=== PATIENT | female | born 1955 | race Caucasian/White ===

== ENCOUNTER → 2016-11-11 | Outpatient (REF) | payer OTHER ==
[2016-11-11 12:21] LABS: MEAN CORPUSCULAR HGB CONC 31.1 g/dl (32.0-36.5); MEAN CORPUSCULAR VOLUME 83.6 fl (80.0-96.0); WHITE BLOOD COUNT 5.8 K/mm3 (4.0-10.0)
[2016-11-11 12:37] LABS: ALBUMIN 4.1 GM/DL (3.2-5.2); ALBUMIN/GLOBULIN RATIO 1.41 (1.00-1.93); ALKALINE PHOSPHATASE 73 U/L (45-117); ALT/SGPT 23 U/L (12-78); ANION GAP 11 MEQ/L (8-16); AST/SGOT 15 U/L (15-37); BILIRUBIN,TOTAL 0.4 MG/DL (0.2-1.0); BLOOD UREA NITROGEN 14 MG/DL (7-18); CALCIUM LEVEL 9.2 MG/DL (8.8-10.2); CARBON DIOXIDE LEVEL 27 MEQ/L (21-32); CHLORIDE LEVEL 103 MEQ/L (98-107); CHOLESTEROL LEVEL 216 MG/DL (<200); CREATININE FOR GFR 0.72 MG/DL (0.55-1.02); GLOMERULAR FILTRATION RATE > 60.0 (>45); GLUCOSE, FASTING 103 MG/DL (80-110); POTASSIUM SERUM 4.4 MEQ/L (3.5-5.1); SODIUM LEVEL 141 MEQ/L (136-145); TRIGLYCERIDES LEVEL 91 MG/DL (<150)
== END ==
LOC: M SFHCPLAZ 11:08
PROVIDERS: ATTEND Internal Medicine
DX: Z00.00 Encounter for general adult medical examination without abnormal findings (principal); Z86.2 Personal history of diseases of the blood and blood-forming organs and certain disorders involving the immune mechanism; E78.00 Pure hypercholesterolemia, unspecified; F34.1 Dysthymic disorder

== ENCOUNTER → 2016-12-12 | Outpatient (CLI) | payer OTHER ==
--- NOTE | 2016-12-12 16:49 | REPMRS ---
Patient History The patient states she has not had a clinical breast exam in over a year. Family history of colorectal cancer in father at age 83, prostate cancer in paternal grandfather at age 50 or over, breast cancer in sister at age 50, breast cancer in maternal grandmother at age 42, and breast cancer in paternal cousin at age 50 or over. Benign stereotactic core biopsy of the right breast. Benign excisional biopsy of both breasts. Digital Woman Screen Mammo: December 12, 2016 - Exam #: [id number] Bilateral CC and MLO view(s) were taken. Technologist: Bethany Stevens Technologist Prior study comparison: June 08, 2015, digital bilateral screening mammo, performed at [facility]. May 27, 2014, bilateral bilat screen digital mammo, performed at [facility] ([facility] FINDINGS: There are scattered fibroglandular densities. There has been no change in the appearance of the mammogram from the prior studies. There is a mild amount of residual fibroglandular tissue which is fairly symmetric. There is no interval development of dominant mass, architectural distortion, or clustered microcalcification suggestive of malignancy. ASSESSMENT: BI-RADS/ACR category 1 mammogram. Negative. Recommendation Routine screening mammogram in 1 year (for women over age 40). This mammogram was interpreted with the aid of an FDA-approved computer-aided dectection system. Electronically Signed By: Josef Perez MD 12/12/16 [id number]
--- NOTE | 2016-12-14 10:24 | DEXA ---
AP SPINE L1 - L4 1.132 -0.5 0.8 LT FEMUR TOTAL 0.984 -0.2 0.8 RT FEMUR TOTAL 1.068 0.5 1.5 TOTAL BODY TOTAL OTHER DUAL FEMUR FRAX* ASSESSMENT Risk factors: None. 10 year probability of fracture Major osteoporotic fracture 7.3 % Hip fracture 0.4 % COMMENTS: Normal bone densitometry of the spine and hips. The increased density of the spine does represent a significant change. The increased density of the left hip does not represent a significant change. The increased density of the right hip does not represent a significant change. The density of the spine has decreased 1.4% since the initial exam on 11/12/2002. The spine density has increased 3.5% since the most recent exam on 04/18/2011. ( Matched prior study for comparison.) The density of the left hip has decreased 6.4% since the initial exam on 2002. The density of the left hip has increased 0.9% since the most recent exam on . The density of the right hip has decreased 0.8% since the initial exam on 2002. The density of the right hip has increased 0.7% since the most recent exam on . FOLLOW-UP: Recommendation for the next bone density exam: 5 years. ANOOPD
== END ==
LOC: M WHC 14:45
PROVIDERS: ATTEND Internal Medicine
DX: Z12.31 Encounter for screening mammogram for malignant neoplasm of breast (principal); M85.89 Other specified disorders of bone density and structure, multiple sites

== ENCOUNTER → 2017-11-10 | Outpatient (REF) | payer OTHER ==
[2017-11-10 12:05] LABS: HEMATOCRIT 37.9 % (36.0-47.0); HEMOGLOBIN 11.9 g/dl (12.0-16.0); MEAN CORPUSCULAR HEMOGLOBIN 25.1 pg (27.0-33.0); MEAN CORPUSCULAR HGB CONC 31.4 g/dl (32.0-36.5); PLATELET COUNT, AUTOMATED 389 10^3/uL (150-450); RED BLOOD COUNT 4.74 10^6/uL (4.00-5.40); RED CELL DISTRIBUTION WIDTH 17.2 % (11.5-14.5); WHITE BLOOD COUNT 5.5 10^3/uL (4.0-10.0)
[2017-11-10 12:33] LABS: ALBUMIN 3.9 GM/DL (3.2-5.2); ALBUMIN/GLOBULIN RATIO 1.34 (1.00-1.93); ALKALINE PHOSPHATASE 75 U/L (45-117); ALT/SGPT 17 U/L (12-78); ANION GAP 9 MEQ/L (8-16); AST/SGOT 13 U/L (7-37); BILIRUBIN,TOTAL 0.3 MG/DL (0.2-1.0); BLOOD UREA NITROGEN 11 MG/DL (7-18); CALCIUM LEVEL 8.7 MG/DL (8.8-10.2); CARBON DIOXIDE LEVEL 26 MEQ/L (21-32); CHLORIDE LEVEL 103 MEQ/L (98-107); CHOLESTEROL LEVEL 196 MG/DL (<200); CHOLESTEROL RISK RATIO 3.438 (<5); CREATININE FOR GFR 0.61 MG/DL (0.55-1.30); GLOMERULAR FILTRATION RATE > 60.0 (>45); GLUCOSE, FASTING 99 MG/DL (70-100); HDL CHOLESTEROL 57 MG/DL (>40); MAGNESIUM LEVEL 2.4 MG/DL (1.8-2.4); NON-HDL-C 139 MG/DL; POTASSIUM SERUM 4.3 MEQ/L (3.5-5.1); SODIUM LEVEL 138 MEQ/L (136-145); TOTAL PROTEIN 6.8 GM/DL (6.4-8.2); TRIGLYCERIDES LEVEL 115 MG/DL (<150)
[2017-11-10 14:18] LABS: FERRITIN 5 NG/ML (8-252); IRON (FE) 33 UG/DL (50-170); PERCENT SATURATION 7.6 % (13.2-45.0); TOTAL IRON BINDING CAPACITY 434 UG/DL (250-450)
== END ==
LOC: M SFHCPLAZ 08:10
DX: Z00.00 Encounter for general adult medical examination without abnormal findings (principal); E78.00 Pure hypercholesterolemia, unspecified; G25.81 Restless legs syndrome; K21.9 Gastro-esophageal reflux disease without esophagitis; R71.8 Other abnormality of red blood cells; Z86.2 Personal history of diseases of the blood and blood-forming organs and certain disorders involving the immune mechanism

== ENCOUNTER → 2018-06-06 | Outpatient (REF) | payer MEDICARE, OTHER ==
[2018-06-06 12:40] LABS: HEMATOCRIT 43.3 % (36.0-47.0); HEMOGLOBIN 14.2 g/dl (12.0-15.5); MEAN CORPUSCULAR HEMOGLOBIN 28.9 pg (27.0-33.0); MEAN CORPUSCULAR HGB CONC 32.8 g/dl (32.0-36.5); PLATELET COUNT, AUTOMATED 320 10^3/uL (150-450); RED BLOOD COUNT 4.92 10^6/uL (4.00-5.40); RED CELL DISTRIBUTION WIDTH 15.9 % (11.5-14.5); WHITE BLOOD COUNT 5.4 10^3/uL (4.0-10.0)
[2018-06-06 13:26] LABS: CHOLESTEROL LEVEL 218 MG/DL (<200); CHOLESTEROL RISK RATIO 3.824 (<5); HDL CHOLESTEROL 57 MG/DL (>40); LDL CHOLESTEROL 123 MG/DL (<100); NON-HDL-C 161 MG/DL; TRIGLYCERIDES LEVEL 190 MG/DL (<150)
== END ==
LOC: M SFHCPLAZ 08:50
DX: Z86.2 Personal history of diseases of the blood and blood-forming organs and certain disorders involving the immune mechanism (principal); E78.00 Pure hypercholesterolemia, unspecified
CPT/HCPCS: 80061

== ENCOUNTER → 2018-10-04 | Outpatient (CLI) | payer MEDICARE, OTHER ==
--- NOTE | 2018-10-04 19:32 | REP ---
CHEST, TWO VIEWS: Two views of the chest are performed. There is no comparison study. There is no acute infiltrate or pulmonary edema. The heart is not enlarged. There is mild calcification and tortuosity of the thoracic aorta. There is a mild sized hiatal hernia. There are mild degenerative changes of the spine. IMPRESSION: No acute infiltrate. Moderate sized hiatal hernia. Electronically Signed by Josef Perez MD 10/04/2018 08:28 P
[2018-10-04 19:53] LABS: HEMATOCRIT 45.1 % (36.0-47.0); HEMOGLOBIN 14.8 g/dl (12.0-15.5); MEAN CORPUSCULAR HEMOGLOBIN 28.6 pg (27.0-33.0); MEAN CORPUSCULAR HGB CONC 32.8 g/dl (32.0-36.5); MEAN CORPUSCULAR VOLUME 87.1 fl (80.0-96.0); PLATELET COUNT, AUTOMATED 326 10^3/uL (150-450); RED BLOOD COUNT 5.18 10^6/uL (4.00-5.40); WHITE BLOOD COUNT 8.3 10^3/uL (4.0-10.0)
[2018-10-04 19:55] LABS: BLOOD UREA NITROGEN 15 MG/DL (7-18); CALCIUM LEVEL 10.1 MG/DL (8.8-10.2); CARBON DIOXIDE LEVEL 27 MEQ/L (21-32); CHLORIDE LEVEL 102 MEQ/L (98-107); CREATININE FOR GFR 0.74 MG/DL (0.55-1.30); GLOMERULAR FILTRATION RATE > 60.0 (>45); GLUCOSE, FASTING 86 MG/DL (70-100); SODIUM LEVEL 136 MEQ/L (136-145); TROPONIN I < 0.02 NG/ML (< 0.10)
[2018-10-04 20:01] LABS: VITAMIN B12 LEVEL 657 PG/ML (247-911)
== END ==
LOC: M WUC 17:05
PROVIDERS: ATTEND Nurse Practitioner Adult Health
DX: K44.9 Diaphragmatic hernia without obstruction or gangrene (principal); R06.02 Shortness of breath; R07.89 Other chest pain
CPT/HCPCS: 36415; 71046; 80048; 82607; 84484; 85027; 93005; G0463

== ENCOUNTER → 2018-10-16 | Outpatient (CLI) | payer MEDICARE, OTHER ==
--- NOTE | 2018-10-16 19:25 | ECHO ---
DATE OF PROCEDURE: 10/16/2018 REFERRING PHYSICIAN: Carmen Costello NP INDICATION: Shortness of breath. Height 152 cm, weight 67 kg DIMENSIONS: IVS: 1.2 LV: 3.6 LVPW: 1.1 LA: 3.9 Aorta: 2.6 IVC: 0.8 Mitral E wave velocity: 44 A wave: 72. E prime septal: 3.6 E prime lateral: 6.4 FINDINGS: The study is of good technical quality. The patient is in sinus rhythm. Left ventricle is of normal size and systolic function with estimated ejection fraction (EF) around 65%. Borderline left ventricular hypertrophy (LVH) is present. Right ventricle appears normal. Both atria appear normal. All four cardiac valves were reasonably well seen and appear normal. Trivial pericardial effusion is noted. Inferior vena cava is of normal size. Aortic root is normal, aortic arch and abdominal aorta also appear normal. Doppler interrogation reveals competent aortic valve. There is trace mitral and trace tricuspid insufficiency. Unfortunately quality of TR jet was not sufficient to estimate pulmonary artery pressure. Pulmonic valve is functionally competent. Mitral inflow pattern and tissue Doppler imaging of mitral annulus revealed grade 1 diastolic dysfunction. CONCLUSIONS: 1. Study is of good technical quality. 2. Normal left ventricular (LV) size with borderline LVH and preserved LV systolic function. Grade 1 diastolic dysfunction. 3. No significant valvular disease. 4. Normal central venous pressure. 5. Unable to estimate pulmonary artery pressure but no signs to suggest pulmonary hypertension. 6. Trace pericardial effusion. COMMENT: Subacute bacterial endocarditis (SBE) prophylaxis is not recommended. MTDD
== END ==
LOC: M CARPUL 09:29
PROVIDERS: ATTEND Nurse Practitioner Adult Health
DX: R06.02 Shortness of breath (principal); R07.89 Other chest pain

== ENCOUNTER → 2018-12-06 | Outpatient (CLI) | payer MEDICARE, OTHER ==
[~2018-12-06] MED LIST: METHACHOLINE KIT (J7674) INH ONE
--- NOTE | 2018-12-06 14:34 | PFTRPT ---
Site: [facility], [address] [place], [address] ID: [id number] Name: ANAHI HOBBS Visit Date: 12/06/2018 Second ID: [id number] Referring Doctor: Nelson Jeffery MD Reviewing Doctor: Nelson Jeffery MD Chemic Mangler: Mirtha OLSON, MAMADOU Age: 63 : 1955 Sex: Female Race: Height: 60.00 Inches Weight: 152.00 Lbs BSA: 1.66 Order IDs: [id number] Requested Test(s): <RESP-PFT.BROCHOPROV> Diagnosis: R06.02 of albuterol for postbronchodilator. Review Status: Not Reviewed Pre-Bronch Post-Bronch Pred Actual %Pred Actual %Chng SPIROMETRY FVC (L) 2.67 2.47 92 2.32 -6 FEV1 (L) 2.03 1.83 90 1.79 -2 FEV1/FVC (%) 77 74 96 77 3 FEF 25% (L/sec) 4.43 4.77 107 4.88 2 FEF 50% (L/sec) 3.47 2.05 59 1.67 -18 FEF 75% (L/sec) 1.08 0.38 35 0.33 -14 FEF 25-75% (L/sec) 1.88 1.29 68 1.16 -10 FEF Max (L/sec) 5.36 5.62 104 5.49 -2 FIVC (L) 2.40 2.34 -2 FIF 50% (L/sec) 3.25 2.76 84 4.70 70 FIF Max (L/sec) 3.03 4.70 55 Expiratory Time (sec) 6.52 6.41 -1 Back Extrap Vol (L) 0.05 0.07 36 Time To FEFmax (sec) 0.064 0.067 3
== END ==
LOC: M CARPUL 07:24
PROVIDERS: ATTEND Internal Medicine Pulmonary Disease
DX: R06.02 Shortness of breath (principal)
CPT/HCPCS: 94070; 95070; J7674

== ENCOUNTER → 2019-01-22 | Outpatient (REF) | payer MEDICARE, OTHER ==
[2019-01-22 18:54] LABS: BLOOD UREA NITROGEN 21 MG/DL (7-18); CREATININE FOR GFR 0.85 MG/DL (0.55-1.30); GLOMERULAR FILTRATION RATE > 60.0 (>45)
== END ==
LOC: M LAB REF 17:08
PROVIDERS: ATTEND Internal Medicine Pulmonary Disease
DX: J45.40 Moderate persistent asthma, uncomplicated (principal)

== ENCOUNTER → 2019-02-06 | Outpatient (CLI) | payer MEDICARE, OTHER ==
[~2019-02-06] MED LIST changes: +ISOVUE-370 76% 100ML VIAL (Q9967) As Ordered ONE; -METHACHOLINE KIT (J7674) INH ONE
--- NOTE | 2019-02-06 12:49 | REP ---
CT of the chest with IV contrast: Comparison is the PA and lateral chest dated 10/04/2018. There are no comparison chest CTs. There are no infiltrates. There are no pleural effusions. There are no nodules or masses. There is a fixed hiatal hernia measuring 8.6 cm in diameter. Cardiac size is enlarged. There is no pericardial effusion. The thoracic aorta is unremarkable. There is no mediastinal or axillary lymph node enlargement. There is no hilar lymph node enlargement. The pulmonary arteries are adequately opacified. No pulmonary emboli are identified. The transverse diameter of the pulmonary trunk measures 3.5 cm. This is compatible with pulmonary hypertension. The visualized upper abdominal contents are unremarkable. Impression: Dilated pulmonary artery trunk measuring up to 3.5 cm, compatible with pulmonary hypertension. 8.6 cm fixed hiatal hernia. No pulmonary emboli. No infiltrates, effusions, masses or adenopathy. Cardiomegaly. Electronically Signed by Josef Ram MD 02/06/2019 12:40 P
== END ==
LOC: M RAD 10:51
PROVIDERS: ATTEND Internal Medicine Pulmonary Disease
DX: I11.9 Hypertensive heart disease without heart failure (principal); J96.11 Chronic respiratory failure with hypoxia; K44.9 Diaphragmatic hernia without obstruction or gangrene
CPT/HCPCS: 71275; Q9967

== ENCOUNTER → 2019-02-10 | Outpatient (CLI) | payer MEDICARE, OTHER ==
[2019-02-10 14:00] LABS: BASO # 0.1 10^3/uL (0.0-0.2); EOS # 0.1 10^3/uL (0.0-0.50); EOS % 1.4 % (0.0-3.0); HEMATOCRIT 45.7 % (36.0-47.0); HEMOGLOBIN 15.2 g/dl (12.0-15.5); LYMPH # 1.8 10^3/uL (1.5-4.5); LYMPH % 25.2 % (24.0-44.0); MEAN CORPUSCULAR HEMOGLOBIN 29.6 pg (27.0-33.0); MEAN CORPUSCULAR HGB CONC 33.3 g/dl (32.0-36.5); MEAN CORPUSCULAR VOLUME 88.9 fl (80.0-96.0); MONO # 0.6 10^3/uL (0.0-0.8); MONO % 8.9 % (0.0-5.0); NEUTROPHILS # 4.5 10^3/uL (1.8-7.7); NEUTROPHILS % 63.2 % (36.0-66.0); PLATELET COUNT, AUTOMATED 326 10^3/uL (150-450); RED BLOOD COUNT 5.14 10^6/uL (4.00-5.40); WHITE BLOOD COUNT 7.1 10^3/uL (4.0-10.0)
[2019-02-10 14:27] LABS: ALBUMIN 3.8 GM/DL (3.2-5.2); ALT/SGPT 18 U/L (12-78); BILIRUBIN,TOTAL 0.4 MG/DL (0.2-1.0); BLOOD UREA NITROGEN 18 MG/DL (7-18); C REACTIVE PROTEIN QUANTITATIV 0.43 MG/DL (0.00-0.30); CALCIUM LEVEL 9.1 MG/DL (8.8-10.2); CARBON DIOXIDE LEVEL 25 MEQ/L (21-32); CHLORIDE LEVEL 108 MEQ/L (98-107); CREATININE FOR GFR 0.78 MG/DL (0.55-1.30); GLOMERULAR FILTRATION RATE > 60.0 (>45); GLUCOSE, FASTING 100 MG/DL (70-100); NT-PRO BNP 744 PG/ML (<125); POTASSIUM SERUM 4.5 MEQ/L (3.5-5.1); SODIUM LEVEL 139 MEQ/L (136-145); TOTAL PROTEIN 6.7 GM/DL (6.4-8.2)
[2019-02-12 14:10] LABS: ANTINUCLEAR ANTIBODIES DIRECT Negative (Negative)
== END ==
LOC: M LAB 13:24
PROVIDERS: ATTEND Internal Medicine
DX: I27.0 Primary pulmonary hypertension (principal)

== ENCOUNTER → 2019-03-05 | Outpatient (CLI) | payer MEDICARE, OTHER ==
[2019-03-05 09:16] LABS: BASO % 0.7 % (0.0-1.0); EOS # 0.1 10^3/uL (0.0-0.50); EOS % 2.4 % (0.0-3.0); HEMATOCRIT 40.9 % (36.0-47.0); HEMOGLOBIN 13.7 g/dl (12.0-15.5); LYMPH % 36.8 % (24.0-44.0); MEAN CORPUSCULAR HEMOGLOBIN 29.4 pg (27.0-33.0); MEAN CORPUSCULAR HGB CONC 33.5 g/dl (32.0-36.5); MEAN CORPUSCULAR VOLUME 87.8 fl (80.0-96.0); MONO # 0.4 10^3/uL (0.0-0.8); MONO % 8.1 % (0.0-5.0); NEUTROPHILS # 2.8 10^3/uL (1.8-7.7); NEUTROPHILS % 51.6 % (36.0-66.0); PLATELET COUNT, AUTOMATED 284 10^3/uL (150-450); RED BLOOD COUNT 4.66 10^6/uL (4.00-5.40); WHITE BLOOD COUNT 5.5 10^3/uL (4.0-10.0)
[2019-03-05 09:47] LABS: BLOOD UREA NITROGEN 16 MG/DL (7-18); CALCIUM LEVEL 9.6 MG/DL (8.8-10.2); CARBON DIOXIDE LEVEL 28 MEQ/L (21-32); CHLORIDE LEVEL 103 MEQ/L (98-107); CREATININE FOR GFR 0.95 MG/DL (0.55-1.30); GLOMERULAR FILTRATION RATE > 60.0 (>45); GLUCOSE, FASTING 104 MG/DL (70-100); NT-PRO BNP 483 PG/ML (<125); POTASSIUM SERUM 4.1 MEQ/L (3.5-5.1); SODIUM LEVEL 138 MEQ/L (136-145)
== END ==
LOC: M LAB 08:44
PROVIDERS: ATTEND Nurse Practitioner Adult Health
DX: I27.20 Pulmonary hypertension, unspecified (principal)

== ENCOUNTER → 2019-05-01 | Outpatient (REF) | payer MEDICARE, OTHER | LOC: M SFHCPLAZ 09:05 | PROVIDERS: ATTEND Internal Medicine | DX: R19.7 Diarrhea, unspecified (principal) ==

== ENCOUNTER → 2019-06-10 | Outpatient (REF) | payer MEDICARE, OTHER ==
[2019-06-10 12:42] LABS: HEMATOCRIT 40.3 % (36.0-47.0); MEAN CORPUSCULAR HGB CONC 32.3 g/dl (32.0-36.5); MEAN CORPUSCULAR VOLUME 93.1 fl (80.0-96.0); PLATELET COUNT, AUTOMATED 297 10^3/uL (150-450); RED BLOOD COUNT 4.33 10^6/uL (4.00-5.40); WHITE BLOOD COUNT 5.9 10^3/uL (4.0-10.0)
[2019-06-10 12:51] LABS: ALBUMIN 3.9 GM/DL (3.2-5.2); ALT/SGPT 20 U/L (12-78); BILIRUBIN,TOTAL 0.4 MG/DL (0.2-1.0); BLOOD UREA NITROGEN 14 MG/DL (7-18); CALCIUM LEVEL 9.3 MG/DL (8.8-10.2); CARBON DIOXIDE LEVEL 30 MEQ/L (21-32); CHLORIDE LEVEL 104 MEQ/L (98-107); CHOLESTEROL LEVEL 210 MG/DL (<200); CHOLESTEROL RISK RATIO 4.375 (<5); CREATININE FOR GFR 0.75 MG/DL (0.55-1.30); GLOMERULAR FILTRATION RATE > 60.0 (>45); GLUCOSE, FASTING 96 MG/DL (70-100); HDL CHOLESTEROL 48 MG/DL (>40); LDL CHOLESTEROL 128 MG/DL (<100); MAGNESIUM LEVEL 2.4 MG/DL (1.8-2.4); NON-HDL-C 162 MG/DL; POTASSIUM SERUM 4.3 MEQ/L (3.5-5.1); SODIUM LEVEL 139 MEQ/L (136-145); TOTAL PROTEIN 6.6 GM/DL (6.4-8.2); TRIGLYCERIDES LEVEL 171 MG/DL (<150); VITAMIN B12 LEVEL 444 PG/ML (247-911)
== END ==
LOC: M SFHCPLAZ 08:58
PROVIDERS: ATTEND Internal Medicine
DX: Z86.2 Personal history of diseases of the blood and blood-forming organs and certain disorders involving the immune mechanism (principal); E78.00 Pure hypercholesterolemia, unspecified; K21.9 Gastro-esophageal reflux disease without esophagitis; F34.1 Dysthymic disorder

== ENCOUNTER → 2019-11-12 | Outpatient (CLI) | payer MEDICARE, OTHER ==
--- NOTE | 2019-11-12 10:14 | REPMRS ---
Patient History The patient states she has not had a clinical breast exam in over a year. Family history of breast cancer at age 50 in sister, breast cancer at age 42 in maternal grandmother, breast cancer at age 50 or over in paternal cousin, colorectal cancer at age 83 in father, prostate cancer at age 50 or over in paternal grandfather. Benign stereotactic core biopsy of the right breast. Benign excisional biopsy of both breasts. Digital Woman Screen Mammo: November 12, 2019 - Exam #: [id number] Bilateral CC and MLO view(s) were taken. Technologist: Lucina Yan, Technologist Prior study comparison: January 31, 2018, digital woman screen mammo performed at [facility] [place]. December 12, 2016, digital woman screen mammo performed at [facility] [place]. June 08, 2015, digital bilateral screening mammo, performed at [facility]. FINDINGS: There are scattered fibroglandular densities. There is a moderate amount of residual fibroglandular tissue which is fairly symmetric. There is no interval development of dominant mass, architectural distortion, or grouped microcalcification typical of malignancy. There has been no change in the appearance of the mammogram from the prior studies. 3-D tomosynthesis shows no additional findings. Assessment: BI-RADS/ACR category 2 mammogram. Benign Findings. Recommendation Breast MRI of both breasts in 6 months. Routine screening mammogram of both breasts in 1 year (for women over age 40). This patient's Lifetime Breast Cancer RIsk is estimated at 20.4 %. Annual screening Breast MRI scanniing is recommended for patient's whose lifetime risk assessment is over 20%. This mammogram was interpreted with the aid of an FDA-approved computer-aided dectection system. Electronically Signed By: Karl Elliott MD 11/12/19 [id number]
== END ==
LOC: M WHC 08:17
PROVIDERS: ATTEND Internal Medicine
DX: Z12.31 Encounter for screening mammogram for malignant neoplasm of breast (principal); Z80.3 Family history of malignant neoplasm of breast; Z86.018 Personal history of other benign neoplasm
CPT/HCPCS: 77063; 77067; G0463

== ENCOUNTER → 2020-06-15 | Outpatient (CLI) | payer MEDICARE, OTHER ==
[2020-06-15 08:21] LABS: HEMATOCRIT 40.9 % (36.0-47.0); HEMOGLOBIN 13.2 g/dl (12.0-15.5); MEAN CORPUSCULAR HEMOGLOBIN 29.1 pg (27.0-33.0); MEAN CORPUSCULAR HGB CONC 32.3 g/dl (32.0-36.5); MEAN CORPUSCULAR VOLUME 90.1 fl (80.0-96.0); PLATELET COUNT, AUTOMATED 283 10^3/uL (150-450); RED BLOOD COUNT 4.54 10^6/uL (4.00-5.40); WHITE BLOOD COUNT 5.9 10^3/uL (4.0-10.0)
[2020-06-15 09:25] LABS: BLOOD UREA NITROGEN 16 MG/DL (7-18); CALCIUM LEVEL 9.3 MG/DL (8.8-10.2); CARBON DIOXIDE LEVEL 26 MEQ/L (21-32); CHLORIDE LEVEL 107 MEQ/L (98-107); FERRITIN 18 NG/ML (8-252); GLOMERULAR FILTRATION RATE > 60.0 (>45); GLUCOSE, FASTING 100 MG/DL (70-100); IRON (FE) 68 UG/DL (50-170); NT-PRO BNP 90 PG/ML (<125); PERCENT SATURATION 20.4 % (13.2-45.0); SODIUM LEVEL 141 MEQ/L (136-145); TOTAL IRON BINDING CAPACITY 334 UG/DL (250-450)
== END ==
LOC: M LAB 07:36
PROVIDERS: ATTEND Internal Medicine
DX: E61.1 Iron deficiency (principal)

== ENCOUNTER → 2020-09-21 | Outpatient (CLI) | payer SELFPAY | LOC: M LABSMTC 13:44 | PROVIDERS: ATTEND Pediatrics | DX: Z20.828 Contact with and (suspected) exposure to other viral communicable diseases (principal) ==

== ENCOUNTER → 2020-11-16 | Outpatient (CLI) | payer MEDICARE, OTHER ==
[2020-11-16 08:21] LABS: BASO # 0.1 10^3/uL (0.0-0.2); BASO % 0.9 % (0.0-1.0); EOS # 0.1 10^3/uL (0.0-0.5); EOS % 1.6 % (0.0-3.0); HEMATOCRIT 40.8 % (36.0-47.0); LYMPH # 2.2 10^3/uL (1.5-5.0); LYMPH % 37.8 % (24.0-44.0); MEAN CORPUSCULAR HEMOGLOBIN 28.8 pg (27.0-33.0); MEAN CORPUSCULAR HGB CONC 31.9 g/dl (32.0-36.5); MEAN CORPUSCULAR VOLUME 90.3 fl (80.0-96.0); MONO # 0.5 10^3/uL (0.0-0.8); MONO % 8.6 % (2.0-8.0); NEUTROPHILS # 2.9 10^3/uL (1.5-8.5); NEUTROPHILS % 50.8 % (36.0-66.0); PLATELET COUNT, AUTOMATED 314 10^3/uL (150-450); RED BLOOD COUNT 4.52 10^6/uL (4.00-5.40); WHITE BLOOD COUNT 5.8 10^3/uL (4.0-10.0)
[2020-11-16 09:05] LABS: ALBUMIN 3.9 GM/DL (3.2-5.2); ALT/SGPT 18 U/L (12-78); BILIRUBIN,TOTAL 0.3 MG/DL (0.2-1.0); BLOOD UREA NITROGEN 21 MG/DL (7-18); CALCIUM LEVEL 9.3 MG/DL (8.8-10.2); CARBON DIOXIDE LEVEL 26 MEQ/L (21-32); CHLORIDE LEVEL 107 MEQ/L (98-107); CHOLESTEROL LEVEL 240 MG/DL (<200); CHOLESTEROL RISK RATIO 4.363 (<5); CREATININE FOR GFR 0.83 MG/DL (0.55-1.30); GLOMERULAR FILTRATION RATE > 60.0 (>45); GLUCOSE, FASTING 97 MG/DL (70-100); HDL CHOLESTEROL 55 MG/DL (>40); LDL CHOLESTEROL 156 MG/DL (<100); NON-HDL-C 185 MG/DL; POTASSIUM SERUM 4.1 MEQ/L (3.5-5.1); SODIUM LEVEL 140 MEQ/L (136-145); TOTAL PROTEIN 6.7 GM/DL (6.4-8.2); TRIGLYCERIDES LEVEL 145 MG/DL (<150)
== END ==
LOC: M LAB 07:30
PROVIDERS: ATTEND Internal Medicine
DX: I27.0 Primary pulmonary hypertension (principal); E78.00 Pure hypercholesterolemia, unspecified; F34.1 Dysthymic disorder; Z11.59 Encounter for screening for other viral diseases
CPT/HCPCS: 36415; 80053; 80061; 84443; 85025; G0463; G0472

== ENCOUNTER → 2021-01-11 | Outpatient (CLI) | payer SELFPAY | LOC: M LABSMTC 14:14 | PROVIDERS: ATTEND Pediatrics | DX: Z20.822 Contact with and (suspected) exposure to COVID-19 (principal) ==

== ENCOUNTER → 2021-01-19 | Outpatient (CLI) | payer MEDICARE, OTHER ==
--- NOTE | 2021-01-19 12:50 | REPPI ---
INDICATION: R07.81 RIB PAIN ON LEFT SIDE. COMPARISON: None TECHNIQUE: Four views FINDINGS: Multiple views of the left ribs show no fracture or osseous lesion. IMPRESSION: Negative left rib series. <Electronically signed by Selvin Lilly > 01/19/21 124
== END ==
LOC: M PLAIMG 10:46
PROVIDERS: ATTEND Nurse Practitioner Family
DX: R07.81 Pleurodynia (principal)

== ENCOUNTER → 2021-04-20 | Outpatient (CLI) | payer MEDICARE, OTHER ==
--- NOTE | 2021-04-21 09:22 | REPMRS ---
Patient History Family history of breast cancer at age 50 in sister, breast cancer at age 42 in maternal grandmother, breast cancer at age 50 or over in paternal cousin, colorectal cancer at age 83 in father, prostate cancer at age 50 or over in paternal grandfather. Benign stereotactic core biopsy of the right breast. Benign excisional biopsy of both breasts. Moderna vaccine 10/30/20 left arm. 11/30/20 left arm. Benign stereotactic bx of the right breast. Benign excisional biopsies of both breasts. Patient states no breast complaints today. Patient has signed MRS History Sheet. Digital Woman Screen Mammo: April 20, 2021 - Exam #: [id number] Bilateral CC and MLO view(s) were taken. Technologist: RT Reynaldo Prior study comparison: November 12, 2019, bilateral digital woman screen mammo performed at [facility]. January 31, 2018, digital woman screen mammo performed at [facility]. FINDINGS: The breast tissue is heterogeneously dense. This may lower the sensitivity of mammography. Screening. Digital screening (2D) mammography was performed bilaterally in the CC and MLO projections. Additionally, breast tomosynthesis (3D mammography) was performed bilaterally in the CC and MLO projections. Todays exam was compared to the prior exam/exams. By history, the patient has no complaints of a palpable breast abnormality or other significant breast complaints. The breasts are unchanged in size and shapeOnce again, dense heterogenous fibroglandular elements are seen bilaterally in a stable appearing pattern but to such a degree that the sensitivity of the mammogram in detecting cancer is decreased.. There are no riki-soft tissue densities or spiculated masses. There is no internal architectural distortion.Once again, stable benign appearing calcifications are seen. There are no suspicious riki-calcific clusters. Skin thickening or nipple retraction is not present. IMPRESSION: BI-RADS Category 2- Benign Findings. There is no evidence of malignant alteration of the breasts. Followup examination recommended in one year. The Volpara volumetric breast density category is C, the breasts are heterogenously dense which may obscure small masses. This mammogram was read with the assistance of [employer],an FDA approved computer aided detection system for mammography. The lifetime Tyrer-Cuzick score is 19.4 % Due to the density of the breasts or Tyrer Cuzick score of 20% or greater, MRI/whole breast screening ultrasound is warranted. Negative x-ray reports should not delay surgical consultation if a dominant or clinically suspicious mass is present. Not all breast cancers can be identified by mammography. Therefore, we recommend that you continue to perform regular breast self-examination and physical examination and then promptly contact your physician of any concerns or changes. Adenosis and dense breasts may obscure an underlying neoplasm. Assessment: BI-RADS/ACR category 2 mammogram. Benign Findings. Recommendation Routine screening mammogram of both breasts in 1 year. Electronically Signed By: Selvin Lilly DO 04/20/21 [id number]
== END ==
LOC: M WHC 10:47
PROVIDERS: ATTEND Internal Medicine
DX: Z12.31 Encounter for screening mammogram for malignant neoplasm of breast (principal)

== ENCOUNTER → 2021-05-08 | Outpatient (CLI) | payer MEDICARE, OTHER ==
[2021-05-08 12:07] LABS: ALBUMIN 3.9 GM/DL (3.2-5.2); ALT/SGPT 24 U/L (12-78); BILIRUBIN,TOTAL 0.4 MG/DL (0.2-1.0); BLOOD UREA NITROGEN 11 MG/DL (7-18); CALCIUM LEVEL 8.8 MG/DL (8.8-10.2); CARBON DIOXIDE LEVEL 27 MEQ/L (21-32); CHLORIDE LEVEL 108 MEQ/L (98-107); CHOLESTEROL LEVEL 215 MG/DL (<200); CHOLESTEROL RISK RATIO 3.909 (<5); CREATININE FOR GFR 0.64 MG/DL (0.55-1.30); GLOMERULAR FILTRATION RATE > 60.0 (>45); GLUCOSE, FASTING 90 MG/DL (70-100); HDL CHOLESTEROL 55 MG/DL (>40); LDL CHOLESTEROL 127 MG/DL (<100); NON-HDL-C 160 MG/DL; POTASSIUM SERUM 5.8 MEQ/L (3.5-5.1); SODIUM LEVEL 139 MEQ/L (136-145); TRIGLYCERIDES LEVEL 165 MG/DL (<150)
== END ==
LOC: M LAB 10:38
PROVIDERS: ATTEND Internal Medicine
DX: E78.00 Pure hypercholesterolemia, unspecified (principal)

== ENCOUNTER → 2021-10-18 | Outpatient (REF) | LOC: M LABSMTC 09:17 | PROVIDERS: ATTEND Pediatrics | DX: Z11.52 Encounter for screening for COVID-19 (principal); Z20.822 Contact with and (suspected) exposure to COVID-19 ==

== ENCOUNTER → 2021-11-02 | Outpatient (CLI) | payer MEDICARE, OTHER ==
[2021-11-02 09:31] LABS: ALBUMIN 3.7 GM/DL (3.2-5.2); ALT/SGPT 17 U/L (12-78); BILIRUBIN,TOTAL 0.2 MG/DL (0.2-1.0); BLOOD UREA NITROGEN 10 MG/DL (7-18); CALCIUM LEVEL 9.4 MG/DL (8.8-10.2); CARBON DIOXIDE LEVEL 28 MEQ/L (21-32); CHLORIDE LEVEL 107 MEQ/L (98-107); CHOLESTEROL LEVEL 202 MG/DL (<200); CHOLESTEROL RISK RATIO 3.366 (<5); CREATININE FOR GFR 0.71 MG/DL (0.55-1.30); GLOMERULAR FILTRATION RATE > 60.0 (>45); GLUCOSE, FASTING 93 MG/DL (70-100); HDL CHOLESTEROL 60 MG/DL (>40); LDL CHOLESTEROL 124 MG/DL (<100); NON-HDL-C 142 MG/DL; SODIUM LEVEL 141 MEQ/L (136-145); TOTAL PROTEIN 6.7 GM/DL (6.4-8.2); TRIGLYCERIDES LEVEL 91 MG/DL (<150)
== END ==
LOC: M LAB 08:27
PROVIDERS: ATTEND Internal Medicine
DX: E78.00 Pure hypercholesterolemia, unspecified (principal)

== ENCOUNTER → 2022-05-05 | Outpatient (CLI) | payer MEDICARE, OTHER ==
[2022-05-05 09:30] LABS: BASO # 0.1 10^3/uL (0.0-0.2); BASO % 1.1 % (0.0-1.0); EOS # 0.1 10^3/uL (0.0-0.5); EOS % 1.8 % (0.0-3.0); HEMATOCRIT 39.3 % (36.0-47.0); HEMOGLOBIN 12.4 g/dl (12.0-15.5); LYMPH # 1.2 10^3/uL (1.5-5.0); MEAN CORPUSCULAR HEMOGLOBIN 29.2 pg (27.0-33.0); MEAN CORPUSCULAR HGB CONC 31.6 g/dl (32.0-36.5); MEAN CORPUSCULAR VOLUME 92.5 fl (80.0-96.0); MONO # 0.5 10^3/uL (0.0-0.8); NEUTROPHILS # 3.8 10^3/uL (1.5-8.5); NEUTROPHILS % 66.7 % (36.0-66.0); PLATELET COUNT, AUTOMATED 232 10^3/uL (150-450); RED BLOOD COUNT 4.25 10^6/uL (4.00-5.40); WHITE BLOOD COUNT 5.6 10^3/uL (4.0-10.0)
[2022-05-05 10:19] LABS: ALBUMIN 3.8 GM/DL (3.2-5.2); ALT/SGPT 19 U/L (12-78); BILIRUBIN,TOTAL 0.2 MG/DL (0.2-1.0); BLOOD UREA NITROGEN 17 MG/DL (7-18); CALCIUM LEVEL 8.9 MG/DL (8.8-10.2); CARBON DIOXIDE LEVEL 26 MEQ/L (21-32); CHLORIDE LEVEL 108 MEQ/L (98-107); CHOLESTEROL LEVEL 226 MG/DL (<200); CHOLESTEROL RISK RATIO 3.896 (<5); CREATININE FOR GFR 0.76 MG/DL (0.55-1.30); GLOMERULAR FILTRATION RATE > 60.0 (>45); GLUCOSE, FASTING 93 MG/DL (70-100); HDL CHOLESTEROL 58 MG/DL (>40); LDL CHOLESTEROL 146 MG/DL (<100); NON-HDL-C 168 MG/DL; SODIUM LEVEL 140 MEQ/L (136-145); THYROID STIMULATING HORMONE 0.793 uIU/ML (0.358-3.740); TOTAL PROTEIN 6.7 GM/DL (6.4-8.2); TRIGLYCERIDES LEVEL 112 MG/DL (<150)
== END ==
LOC: M LAB 08:48
PROVIDERS: ATTEND Internal Medicine
DX: E78.00 Pure hypercholesterolemia, unspecified (principal); Z86.2 Personal history of diseases of the blood and blood-forming organs and certain disorders involving the immune mechanism

== ENCOUNTER → 2022-07-29 | Outpatient (CLI) | payer MEDICARE, OTHER | LOC: M WHC 15:08 | PROVIDERS: ATTEND Internal Medicine Hematology | DX: Z12.31 Encounter for screening mammogram for malignant neoplasm of breast (principal) ==

== ENCOUNTER → 2022-09-06 | Outpatient (REF) | payer MEDICARE, OTHER | LOC: M SFHCPLAZ 13:26 | PROVIDERS: ATTEND Physician Assistant | DX: R39.9 Unspecified symptoms and signs involving the genitourinary system (principal) ==

== ENCOUNTER → 2022-11-11 | Outpatient (CLI) | payer MEDICARE, OTHER ==
[2022-11-11 10:00] LABS: HEMATOCRIT 39.4 % (36.0-47.0); HEMOGLOBIN 12.5 g/dl (12.0-15.5); MEAN CORPUSCULAR HEMOGLOBIN 28.5 pg (27.0-33.0); MEAN CORPUSCULAR HGB CONC 31.7 g/dl (32.0-36.5); PLATELET COUNT, AUTOMATED 247 10^3/uL (150-450); RED BLOOD COUNT 4.38 10^6/uL (4.00-5.40); WHITE BLOOD COUNT 5.1 10^3/uL (4.0-10.0)
[2022-11-11 10:13] LABS: HEMOGLOBIN A1c 5.8 % (4.0-6.0)
[2022-11-11 10:28] LABS: CREATININE, URINE 231.8 MG/DL; MAU/CREAT RATIO 11.6 MCG/MG (0.0-30.0)
[2022-11-11 10:28] LABS: C REACTIVE PROTEIN QUANTITATIV < 0.40 MG/DL (<1.0)
[2022-11-11 10:29] LABS: ALKALINE PHOSPHATASE 49 U/L (46-116); ALT/SGPT 23 U/L (7.0-40); AST/SGOT 19 U/L (<34); BILIRUBIN,TOTAL 0.4 MG/DL (0.3-1.2); BLOOD UREA NITROGEN 16 MG/DL (9-23); CALCIUM LEVEL 9.1 MG/DL (8.3-10.6); CARBON DIOXIDE LEVEL 28 MMOL/L (20-31); CHLORIDE LEVEL 107 MMOL/L (98-107); CHOLESTEROL LEVEL 223 MG/DL (<200); CHOLESTEROL RISK RATIO 4.04 (<5); GLOMERULAR FILTRATION RATE > 60.0 (>45); GLUCOSE, FASTING 94 MG/DL (74-106); HDL CHOLESTEROL 55.1 MG/DL (>40); LDL CHOLESTEROL 138.7 MG/DL (<100); NON-HDL-C 168 MG/DL; POTASSIUM SERUM 4.3 MMOL/L (3.5-5.1); SODIUM LEVEL 140 MMOL/L (136-145); TOTAL PROTEIN 6.5 G/DL (5.7-8.2); TRIGLYCERIDES LEVEL 146 MG/DL (<150)
[2022-11-11 10:30] LABS: THYROID STIMULATING HORMONE 1.388 uIU/ML (0.55-4.78); TOTAL 25(OH) VITAMIN D 39.3 NG/ML (20.0-100.0)
[2022-11-11 10:31] LABS: FREE T4 1.08 NG/DL (0.89-1.76); VITAMIN B12 LEVEL 947 PG/ML (211-911)
== END ==
LOC: M LAB 08:55
PROVIDERS: ATTEND Internal Medicine Hematology
DX: E78.00 Pure hypercholesterolemia, unspecified (principal); Z79.899 Other long term (current) drug therapy

== ENCOUNTER → 2023-05-04 | Outpatient (CLI) | payer MEDICARE, OTHER ==
[2023-05-04 08:36] LABS: HEMATOCRIT 37.2 % (36.0-47.0); HEMOGLOBIN 12.2 g/dl (12.0-15.5); MEAN CORPUSCULAR HEMOGLOBIN 28.8 pg (27.0-33.0); MEAN CORPUSCULAR HGB CONC 32.8 g/dl (32.0-36.5); MEAN CORPUSCULAR VOLUME 87.7 fl (80.0-96.0); PLATELET COUNT, AUTOMATED 269 10^3/uL (150-450); RED BLOOD COUNT 4.24 10^6/uL (4.00-5.40); WHITE BLOOD COUNT 8.4 10^3/uL (4.0-10.0)
[2023-05-04 08:58] LABS: PERCENT SATURATION 18.8 % (13.2-45.0)
== END ==
LOC: M LAB 07:48
PROVIDERS: ATTEND Internal Medicine Hematology
DX: Z86.2 Personal history of diseases of the blood and blood-forming organs and certain disorders involving the immune mechanism (principal)

== ENCOUNTER → 2023-08-01 | Outpatient (CLI) | payer MEDICARE, OTHER | LOC: M WHC 10:18 | PROVIDERS: ATTEND Internal Medicine Hematology | DX: Z12.31 Encounter for screening mammogram for malignant neoplasm of breast (principal) ==

== ENCOUNTER 2023-11-16 18:58 | Emergency (ER) | payer MEDICARE, OTHER ==
[~2023-11-16] VITALS: Ht 152.4 cm; Wt 61.0 kg
[2023-11-16 23:01] VITALS: BP 132/74; O2SAT 94
[2023-11-16 23:11] LABS: BASO # 0.1 10^3/uL (0.0-0.2); BASO % 0.5 % (0.0-1.0); EOS # 0.1 10^3/uL (0.0-0.5); EOS % 0.8 % (0.0-3.0); HEMATOCRIT 35.8 % (36.0-47.0); HEMOGLOBIN 11.5 g/dl (12.0-15.5); LYMPH # 1.7 10^3/uL (1.5-5.0); LYMPH % 14.2 % (24.0-44.0); MEAN CORPUSCULAR HEMOGLOBIN 28.6 pg (27.0-33.0); MEAN CORPUSCULAR HGB CONC 32.1 g/dl (32.0-36.5); MEAN CORPUSCULAR VOLUME 89.1 fl (80.0-96.0); MONO # 0.7 10^3/uL (0.0-0.8); MONO % 5.9 % (2.0-8.0); NEUTROPHILS # 9.2 10^3/uL (1.5-8.5); PLATELET COUNT, AUTOMATED 274 10^3/uL (150-450); RED BLOOD COUNT 4.02 10^6/uL (4.00-5.40); WHITE BLOOD COUNT 11.7 10^3/uL (4.0-10.0)
[2023-11-16 23:17] VITALS: TEMP 97.9
== END 2023-11-16 23:20 | disposition home or self-care (01) ==
LOC: M ED 18:58
DX: H91.90 Unspecified hearing loss, unspecified ear (principal); K21.9 Gastro-esophageal reflux disease without esophagitis; G25.81 Restless legs syndrome; F32.A Depression, unspecified; I27.20 Pulmonary hypertension, unspecified; J84.10 Pulmonary fibrosis, unspecified; Z99.81 Dependence on supplemental oxygen; Z88.6 Allergy status to analgesic agent; Z88.8 Allergy status to other drugs, medicaments and biological substances; Z88.0 Allergy status to penicillin; Z88.5 Allergy status to narcotic agent

== ENCOUNTER → 2023-11-21 | Outpatient (CLI) | payer MEDICARE, OTHER ==
[2023-11-21 14:53] LABS: HEMATOCRIT 34.5 % (36.0-47.0); HEMOGLOBIN 11.2 g/dl (12.0-15.5); MEAN CORPUSCULAR HEMOGLOBIN 28.2 pg (27.0-33.0); MEAN CORPUSCULAR HGB CONC 32.5 g/dl (32.0-36.5); MEAN CORPUSCULAR VOLUME 86.9 fl (80.0-96.0); PLATELET COUNT, AUTOMATED 248 10^3/uL (150-450); RED BLOOD COUNT 3.97 10^6/uL (4.00-5.40); WHITE BLOOD COUNT 7.3 10^3/uL (4.0-10.0)
[2023-11-21 15:10] LABS: BLOOD UREA NITROGEN 13 MG/DL (9-23); CALCIUM LEVEL 8.4 MG/DL (8.3-10.6); CARBON DIOXIDE LEVEL 25 MMOL/L (20-31); CHLORIDE LEVEL 109 MMOL/L (98-107); GLOMERULAR FILTRATION RATE > 60.0 (>39); GLUCOSE, FASTING 121 MG/DL (74-106); POTASSIUM SERUM 3.9 MMOL/L (3.5-5.1); SODIUM LEVEL 139 MMOL/L (136-145)
== END ==
LOC: M LAB 14:01
PROVIDERS: ATTEND Internal Medicine
DX: I50.9 Heart failure, unspecified (principal)

== ENCOUNTER → 2023-12-18 | Outpatient (CLI) | payer MEDICARE, OTHER ==
[2023-12-18 09:36] LABS: HEMATOCRIT 37.1 % (36.0-47.0); HEMOGLOBIN 11.8 g/dl (12.0-15.5); MEAN CORPUSCULAR HEMOGLOBIN 28.7 pg (27.0-33.0); MEAN CORPUSCULAR HGB CONC 31.8 g/dl (32.0-36.5); MEAN CORPUSCULAR VOLUME 90.3 fl (80.0-96.0); PLATELET COUNT, AUTOMATED 203 10^3/uL (150-450); RED BLOOD COUNT 4.11 10^6/uL (4.00-5.40); WHITE BLOOD COUNT 4.9 10^3/uL (4.0-10.0)
[2023-12-18 10:09] LABS: BLOOD UREA NITROGEN 19 MG/DL (9-23); CALCIUM LEVEL 9.1 MG/DL (8.3-10.6); CARBON DIOXIDE LEVEL 29 MMOL/L (20-31); CHLORIDE LEVEL 108 MMOL/L (98-107); CREATININE FOR GFR 0.83 MG/DL (0.55-1.30); GLOMERULAR FILTRATION RATE > 60.0 (>39); GLUCOSE, FASTING 99 MG/DL (74-106); POTASSIUM SERUM 4.2 MMOL/L (3.5-5.1); SODIUM LEVEL 140 MMOL/L (136-145)
== END ==
LOC: M LAB 09:00
PROVIDERS: ATTEND Internal Medicine
DX: I27.21 Secondary pulmonary arterial hypertension (principal); I50.9 Heart failure, unspecified

== ENCOUNTER → 2023-12-28 | Outpatient (CLI) | payer MEDICARE, OTHER ==
[2023-12-28 09:32] LABS: BASO # 0.1 10^3/uL (0.0-0.2); BASO % 0.7 % (0.0-1.0); EOS # 0.1 10^3/uL (0.0-0.5); EOS % 1.3 % (0.0-3.0); HEMATOCRIT 39.4 % (36.0-47.0); HEMOGLOBIN 12.4 g/dl (12.0-15.5); LYMPH # 1.4 10^3/uL (1.5-5.0); LYMPH % 19.9 % (24.0-44.0); MEAN CORPUSCULAR HEMOGLOBIN 28.8 pg (27.0-33.0); MEAN CORPUSCULAR HGB CONC 31.5 g/dl (32.0-36.5); MEAN CORPUSCULAR VOLUME 91.6 fl (80.0-96.0); MONO # 0.4 10^3/uL (0.0-0.8); MONO % 6.1 % (2.0-8.0); NEUTROPHILS # 5.2 10^3/uL (1.5-8.5); NEUTROPHILS % 71.7 % (36.0-66.0); PLATELET COUNT, AUTOMATED 250 10^3/uL (150-450); WHITE BLOOD COUNT 7.2 10^3/uL (4.0-10.0)
[2023-12-28 09:54] LABS: ALKALINE PHOSPHATASE 51 U/L (46-116); ALT/SGPT 13 U/L (7.0-40); AST/SGOT 11 U/L (<34); BILIRUBIN,TOTAL 0.3 MG/DL (0.3-1.2); BLOOD UREA NITROGEN 17 MG/DL (9-23); CALCIUM LEVEL 9.2 MG/DL (8.3-10.6); CARBON DIOXIDE LEVEL 31 MMOL/L (20-31); CHLORIDE LEVEL 106 MMOL/L (98-107); CHOLESTEROL LEVEL 193 MG/DL (<200); CREATININE FOR GFR 0.84 MG/DL (0.55-1.30); GLOMERULAR FILTRATION RATE > 60.0 (>39); GLUCOSE, FASTING 102 MG/DL (74-106); HDL CHOLESTEROL 50.7 MG/DL (>40); IRON (FE) 66 UG/DL (50-170); LDL CHOLESTEROL 98.7 MG/DL (<100); NON-HDL-C 142.3 MG/DL; POTASSIUM SERUM 4.7 MMOL/L (3.5-5.1); SODIUM LEVEL 141 MMOL/L (136-145); TOTAL PROTEIN 6.4 G/DL (5.7-8.2); TRIGLYCERIDES LEVEL 218 MG/DL (<150)
== END ==
LOC: M LAB 08:23
PROVIDERS: ATTEND Internal Medicine Hematology
DX: I27.0 Primary pulmonary hypertension (principal); Z86.2 Personal history of diseases of the blood and blood-forming organs and certain disorders involving the immune mechanism; E78.00 Pure hypercholesterolemia, unspecified

== ENCOUNTER → 2024-05-10 | Outpatient (CLI) | payer MEDICARE, OTHER ==
[2024-05-10 16:55] LABS: HEMATOCRIT 42.6 % (36.0-47.0); MEAN CORPUSCULAR HEMOGLOBIN 29.1 pg (27.0-33.0); MEAN CORPUSCULAR HGB CONC 32.9 g/dl (32.0-36.5); MEAN CORPUSCULAR VOLUME 88.6 fl (80.0-96.0); PLATELET COUNT, AUTOMATED 189 10^3/uL (150-450); RED BLOOD COUNT 4.81 10^6/uL (4.00-5.40); WHITE BLOOD COUNT 5.9 10^3/uL (4.0-10.0)
[2024-05-10 17:09] LABS: BLOOD UREA NITROGEN 12 MG/DL (9-23); CALCIUM LEVEL 8.8 MG/DL (8.3-10.6); CARBON DIOXIDE LEVEL 25 MMOL/L (20-31); CHLORIDE LEVEL 107 MMOL/L (98-107); CREATININE FOR GFR 0.89 MG/DL (0.55-1.30); GLOMERULAR FILTRATION RATE > 60.0 (>39); GLUCOSE, FASTING 105 MG/DL (74-106); POTASSIUM SERUM 4.1 MMOL/L (3.5-5.1); SODIUM LEVEL 138 MMOL/L (136-145)
== END ==
LOC: M LAB 15:39
PROVIDERS: ATTEND Internal Medicine
DX: I50.810 Right heart failure, unspecified (principal)

== ENCOUNTER → 2024-06-03 | Outpatient (CLI) | payer MEDICARE, OTHER ==
[2024-06-03 09:25] LABS: BASO # 0.1 10^3/uL (0.0-0.2); BASO % 0.7 % (0.0-1.0); EOS # 0.1 10^3/uL (0.0-0.5); EOS % 1.2 % (0.0-3.0); HEMATOCRIT 42.9 % (36.0-47.0); HEMOGLOBIN 13.8 g/dl (12.0-15.5); LYMPH # 1.4 10^3/uL (1.5-5.0); LYMPH % 19.9 % (24.0-44.0); MEAN CORPUSCULAR HEMOGLOBIN 29.1 pg (27.0-33.0); MEAN CORPUSCULAR HGB CONC 32.2 g/dl (32.0-36.5); MEAN CORPUSCULAR VOLUME 90.3 fl (80.0-96.0); MONO # 0.5 10^3/uL (0.0-0.8); MONO % 6.6 % (2.0-8.0); NEUTROPHILS % 68.7 % (36.0-66.0); PLATELET COUNT, AUTOMATED 198 10^3/uL (150-450); RED BLOOD COUNT 4.75 10^6/uL (4.00-5.40); WHITE BLOOD COUNT 7.2 10^3/uL (4.0-10.0)
[2024-06-03 09:49] LABS: C REACTIVE PROTEIN QUANTITATIV < 0.40 MG/DL (<1.0); HEMOGLOBIN A1c 5.4 % (4.0-6.0)
[2024-06-03 09:50] LABS: CREATININE, URINE 98.3 MG/DL; MAU/CREAT RATIO 7.1 MCG/MG (0.0-30.0)
[2024-06-03 09:51] LABS: ALBUMIN 4.1 G/DL (3.2-5.2); ALKALINE PHOSPHATASE 57 U/L (46-116); ALT/SGPT < 9 U/L (7.0-40); AST/SGOT 11 U/L (<34); BILIRUBIN,TOTAL 0.3 MG/DL (0.3-1.2); BLOOD UREA NITROGEN 9 MG/DL (9-23); CARBON DIOXIDE LEVEL 29 MMOL/L (20-31); CHLORIDE LEVEL 105 MMOL/L (98-107); CHOLESTEROL LEVEL 222 MG/DL (<200); CHOLESTEROL RISK RATIO 5.46 (<5); CREATININE FOR GFR 0.85 MG/DL (0.55-1.30); GLOMERULAR FILTRATION RATE > 60.0 (>39); GLUCOSE, FASTING 94 MG/DL (74-106); HDL CHOLESTEROL 40.6 MG/DL (>40); IRON (FE) 49 UG/DL (50-170); LDL CHOLESTEROL 133.2 MG/DL (<100); NON-HDL-C 181.4 MG/DL; POTASSIUM SERUM 4.2 MMOL/L (3.5-5.1); SODIUM LEVEL 138 MMOL/L (136-145); TOTAL PROTEIN 6.6 G/DL (5.7-8.2); TRIGLYCERIDES LEVEL 241 MG/DL (<150)
[2024-06-03 09:52] LABS: THYROID STIMULATING HORMONE 0.952 uIU/ML (0.55-4.78); TOTAL 25(OH) VITAMIN D 41.6 NG/ML (20.0-100.0); VITAMIN B12 LEVEL 731 PG/ML (211-911)
[2024-06-03 09:53] LABS: FREE T4 1.22 NG/DL (0.89-1.76)
== END ==
LOC: M LAB 08:44
PROVIDERS: ATTEND Internal Medicine Hematology
DX: E78.00 Pure hypercholesterolemia, unspecified (principal); Z86.2 Personal history of diseases of the blood and blood-forming organs and certain disorders involving the immune mechanism; Z79.899 Other long term (current) drug therapy

== ENCOUNTER → 2024-08-06 | Outpatient (CLI) | payer MEDICARE, OTHER | LOC: M WHC 14:06 | PROVIDERS: ATTEND Internal Medicine Hematology | DX: Z12.31 Encounter for screening mammogram for malignant neoplasm of breast (principal); R92.333 Mammographic heterogeneous density, bilateral breasts ==

== ENCOUNTER → 2024-08-20 | Outpatient (CLI) | payer MEDICARE, OTHER ==
[2024-08-20 09:29] LABS: HEMATOCRIT 45.2 % (36.0-47.0); HEMOGLOBIN 14.4 g/dl (12.0-15.5); MEAN CORPUSCULAR HEMOGLOBIN 28.4 pg (27.0-33.0); MEAN CORPUSCULAR HGB CONC 31.9 g/dl (32.0-36.5); MEAN CORPUSCULAR VOLUME 89.2 fl (80.0-96.0); PLATELET COUNT, AUTOMATED 201 10^3/uL (150-450); RED BLOOD COUNT 5.07 10^6/uL (4.00-5.40); WHITE BLOOD COUNT 5.5 10^3/uL (4.0-10.0)
[2024-08-20 09:59] LABS: BLOOD UREA NITROGEN 14 MG/DL (9-23); CALCIUM LEVEL 9.4 MG/DL (8.3-10.6); CARBON DIOXIDE LEVEL 28 MMOL/L (20-31); CHLORIDE LEVEL 106 MMOL/L (98-107); GLOMERULAR FILTRATION RATE > 60.0 (>39); GLUCOSE, FASTING 91 MG/DL (74-106); POTASSIUM SERUM 4.1 MMOL/L (3.5-5.1); SODIUM LEVEL 140 MMOL/L (136-145)
[2024-08-24 06:58] LABS: CYSTATIN C 1.67 mg/L (0.52-1.10)
== END ==
LOC: M LAB 08:37
PROVIDERS: ATTEND Internal Medicine
DX: I50.810 Right heart failure, unspecified (principal); Z79.899 Other long term (current) drug therapy

== ENCOUNTER → 2024-12-09 | Outpatient (CLI) | payer MEDICARE, OTHER ==
[2024-12-09 10:47] LABS: HEMATOCRIT 40.3 % (36.0-47.0); HEMOGLOBIN 12.9 g/dl (12.0-15.5); MEAN CORPUSCULAR HEMOGLOBIN 29.1 pg (27.0-33.0); PLATELET COUNT, AUTOMATED 222 10^3/uL (150-450); RED BLOOD COUNT 4.43 10^6/uL (4.00-5.40); WHITE BLOOD COUNT 5.7 10^3/uL (4.0-10.0)
[2024-12-09 10:58] LABS: HEMOGLOBIN A1c 5.5 % (4.0-6.0)
[2024-12-09 11:20] LABS: TOTAL IRON BINDING CAPACITY 310 UG/DL (250-425)
[2024-12-09 11:22] LABS: ALBUMIN 3.8 G/DL (3.2-5.2); ALKALINE PHOSPHATASE 50 U/L (35-104); ALT/SGPT 10 U/L (7.0-40); AST/SGOT 12 U/L (<34); BILIRUBIN,TOTAL 0.2 MG/DL (0.3-1.2); BLOOD UREA NITROGEN 11 MG/DL (9-23); CALCIUM LEVEL 8.7 MG/DL (8.3-10.6); CARBON DIOXIDE LEVEL 23 MMOL/L (20-31); CHLORIDE LEVEL 107 MMOL/L (98-107); CHOLESTEROL LEVEL 218 MG/DL (<200); CHOLESTEROL RISK RATIO 5.24 (<5); CREATININE FOR GFR 0.92 MG/DL (0.55-1.30); GLOMERULAR FILTRATION RATE > 60.0 (>39); GLUCOSE, FASTING 90 MG/DL (74-106); HDL CHOLESTEROL 41.6 MG/DL (>40); IRON (FE) 41 UG/DL (50-170); MAGNESIUM LEVEL 2.3 MG/DL (1.8-2.4); NON-HDL-C 176.4 MG/DL; PERCENT SATURATION 13.2 % (13.2-45.0); POTASSIUM SERUM 4.6 MMOL/L (3.5-5.1); SODIUM LEVEL 139 MMOL/L (136-145); TOTAL PROTEIN 6.4 G/DL (5.7-8.2); TRIGLYCERIDES LEVEL 187 MG/DL (<150)
[2024-12-09 11:24] LABS: FERRITIN 13.7 NG/ML (7.3-270.7)
== END ==
LOC: M LAB 09:38
PROVIDERS: ATTEND Nurse Practitioner Adult Health
DX: Z86.2 Personal history of diseases of the blood and blood-forming organs and certain disorders involving the immune mechanism (principal); E78.00 Pure hypercholesterolemia, unspecified; K21.9 Gastro-esophageal reflux disease without esophagitis; E55.9 Vitamin D deficiency, unspecified

== ENCOUNTER → 2025-06-10 | Outpatient (CLI) | payer MEDICARE, OTHER ==
[2025-06-10 11:03] LABS: PLATELET COUNT, AUTOMATED 261 10^3/uL (150-450)
[2025-06-10 11:30] LABS: ALT/SGPT 13.0 U/L (7.0-40); AST/SGOT 17.0 U/L (<34); CALCIUM LEVEL 9.2 MG/DL (8.3-10.6); CARBON DIOXIDE LEVEL 28.0 MMOL/L (20-31); CHLORIDE LEVEL 103.0 MMOL/L (98-107); CHOLESTEROL LEVEL 202.0 MG/DL (<200); CHOLESTEROL RISK RATIO 4.23 (<5); CREATININE FOR GFR 0.96 MG/DL (0.55-1.30); GLOMERULAR FILTRATION RATE 62.9 (>39); LDL CHOLESTEROL 116.9 MG/DL (<100); MAGNESIUM LEVEL 2.5 MG/DL (1.8-2.4); NON-HDL-C 154.3 MG/DL; POTASSIUM SERUM 4.7 MMOL/L (3.5-5.1); SODIUM LEVEL 139.0 MMOL/L (136-145); TRIGLYCERIDES LEVEL 187.0 MG/DL (<150)
== END ==
LOC: M LAB 09:45
PROVIDERS: ATTEND Nurse Practitioner Adult Health
DX: Z86.2 Personal history of diseases of the blood and blood-forming organs and certain disorders involving the immune mechanism (principal); E78.00 Pure hypercholesterolemia, unspecified; K21.9 Gastro-esophageal reflux disease without esophagitis

== ENCOUNTER → 2025-08-07 | Outpatient (CLI) | payer MEDICARE, OTHER | LOC: M WHC 11:03 | PROVIDERS: ATTEND Nurse Practitioner Adult Health | DX: Z12.31 Encounter for screening mammogram for malignant neoplasm of breast (principal) ==

== ENCOUNTER → 2025-09-03 | Outpatient (CLI) | payer MEDICARE, OTHER ==
[2025-09-04 21:38] LABS: T P ELECTROPHORESIS SO 6.6 g/dL (6.1-8.1)
[2025-09-05 13:42] LABS: FREE KAPPA LIGHT CHAINS SERUM 23.8 mg/L (3.3-19.4); FREE LAMBDA LIGHT CHAINS SERUM 21.2 mg/L (5.7-26.3); KAPPA/LAMBDA RATIO SERUM 1.12 (0.26-1.65)
== END ==
LOC: M LAB 11:24
PROVIDERS: ATTEND Internal Medicine Cardiovascular Disease
DX: E85.9 Amyloidosis, unspecified (principal)

== ENCOUNTER → 2025-09-05 | Outpatient (REF) | payer MEDICARE, OTHER ==
[2025-09-08 11:02] LABS: PROTEIN CREAT 24H RATIO 148 mg/g creat (<150); T PROTEIN CREAT 24HR RATIO 0.148 (<0.150); UPEP 24H CREATININE 0.79 g/24 h (0.50-2.15)
[2025-09-09 06:44] LABS: Urine Albumin % 47 %; Urine Alpha-1-Globulin % 11 %; Urine Alpha-2-Globulin % 13 %; Urine Beta Globulin % 14 %; Urine Gamma Globulin % 15 %
== END ==
LOC: M LAB REF 12:21
PROVIDERS: ATTEND Internal Medicine Cardiovascular Disease
DX: E85.9 Amyloidosis, unspecified (principal)